=== PATIENT | female | born 1950 | race American Indian/Alaskan Native ===

== ENCOUNTER 2019-05-16 23:38 | Emergency (ER) | payer MEDICARE ==
--- NOTE | 2019-05-17 00:17 | Emergency Department Report ---
<TRUNG CASTILLO - Last Filed: 05/17/19 04:32> ED General Adult HPI - General Chief complaint: Dyspnea/Respdistress Stated complaint: CHOKING Time Seen by Provider: 05/17/19 00:01 Source: patient Mode of arrival: Ambulatory Limitations: No Limitations - History of Present Illness Initial comments: 68-year-old female the past medical history of diabetes that is diet-controlled and hypertension and previous hysterectomy presents to the hospital complaining of difficulty swallowing since getting a pill stuck to her throat. Patient has been having some dental pain so she started some leftover clindamycin tablets. She took the tablets sometime between 8:30 and 9 PM and felt like it got stuck in her upper esophagus. Patient tried swallowing water and bread. She did have a burning sensation to her esophagus but now continues to have difficulty swallowing and pain in her esophagus/neck area. Patient looks uncomfortable with swallowing her saliva and is spitting into a bag at the bedside. - Related Data Previous Rx's Medication Instructions Recorded Last Taken Type Lidocaine Topical 2% 30Ml 15 ml PO Q6H 2 Days #120 ml 05/17/19 Unknown Rx [Xylocaine Topical 2% 30Ml] Sucralfate [Carafate] 10 ml PO TID 14 Days #420 ml 05/17/19 Unknown Rx Allergies Allergy/AdvReac Type Severity Reaction Status Date / Time No Known Allergies Allergy Verified 05/17/19 03:56 ED Review of Systems Comment: All other systems reviewed and negative ED Past Medical Hx - Past Medical History Previous Medical History?: Yes Hx Hypertension: Yes Hx Diabetes: Yes - Surgical History Past Surgical History?: Yes Additional Surgical History: Hysterectomy - Social History Smoking Status: Never Smoker Substance Use Type: None - Medications Home Medications: Home Medications Medication Instructions Recorded Confirmed Last Taken Type Lidocaine Topical 2% 30Ml 15 ml PO Q6H 2 Days #120 ml 05/17/19 Unknown Rx [Xylocaine Topical 2% 30Ml] Sucralfate [Carafate] 10 ml PO TID 14 Days #420 ml 05/17/19 Unknown Rx ED Physical Exam - General Limitations: No Limitations - Other Other exam information: General: Mild distress secondary to throat discomfort Head: Atraumatic Eyes: normal appearance ENT: Moist mucous membranes Neck: Normal appearance, no midline tenderness, no stridor Chest: Clear to auscultation bilaterally CV: Regular rate and rhythm Abdomen: Soft, normal bowel sounds, nontender, nondistended, no rebound or guarding Back: Normal inspection Extremity: Normal inspection, full range of motion Neuro: Alert O x 3, no facial asymmetry, speech clear, no gross motor sensory deficit Psych: Appropriate behavior Skin: No rash ED Course - Reevaluation(s) Reevaluation #1: 05/17/19 00:16 I gave patient a cup of water to evaluate ability to swallow. Patient swallow very little and immediately had pain to neck area and spit up the water. 05/17/19 03:46 pt received Zofran, IV glucagon and still will painful and difficulty swallowing A small amount of viscous lidocaine was provided which pt had difficulty swallowing with very small amount ingested. this was followed by a gulp of water. pt spit the water back up immediately. Differential still includes clindamycin pill induced esophagitis versus obstruction and patient has failed ED medication attempts. GI will be will be reconsulted Reevaluation #2: 05/17/19 06:00 signed out to [facility] siu pt with planned endoscopy at 7am. please follow and dispo as per GI rec - Consultations Consultation #1: 05/17/19 00:22 case d/w Dr Robins, requests trial of glucagon obs for 1-2 hours, and repeat po fluid challenge to see if it improves. 05/17/19 03:[address] Robins, He will contact team to determine when endoscopy can be preformed. 05/17/19 04:11 Dr Robins plans to preform endoscopy around 7am. Pt will need to be signed out to oncoming provider ED Medical Decision Making - Lab Data Result diagrams: 05/17/19 00:49 05/17/19 00:40 - Radiology Data Radiology results: report reviewed AP AND LATERAL SOFT TISSUE NECK INDICATION / CLINICAL INFORMATION: FB (clindamycin pill) in esophagus. COMPARISON: None available. FINDINGS: There are prominent flowing osteophytes throughout the cervical spine consistent with DISH (diffuse idiopathic skeletal hyperostosis). The prevertebral soft tissues are normal. The airway is normal in appearance. The epiglottis is normal in size. I do not identify a radiopaque foreign body. - Medical Decision Making Patient with esophagitis versus esophageal foreign body (pill) obstruction. Despite ED meds patient is unable to swallow liquids in the ED. GI consult with endoscopy planned for the a.m. 05/17/19 06:00 signed out to [facility] siu pt with planned endoscopy at 7am. please follow and dispo as per GI rec - Differential Diagnosis Esophageal foreign body Critical Care Time: No ED Disposition Clinical Impression: Pill esophagitis, Vocal cord disease Disposition: DC-01 TO HOME OR SELFCARE Condition: Stable Additional Instructions: You will need to see an survey research professor. You have swelling of the vocal cords. Prescriptions: Sucralfate [Carafate] 10 ml PO TID 14 Days #420 ml Lidocaine Topical 2% 30Ml [Xylocaine Topical 2% 30Ml] 15 ml PO Q6H 2 Days #120 ml Referrals: FELICIA BARR MD [Staff Physician] - 3-5 Days <URSULA [facility] - Last Filed: 05/17/19 07:43> ED Review of Systems ROS: Stated complaint: CHOKING Other details as noted in HPI ED Course Vital Signs 05/16/19 05/17/19 05/17/19 23:59 00:54 03:54 Temperature 100 F H Pulse Rate 98 H 90 68 Respiratory 20 16 16 Rate Blood Pressure Blood Pressure 160/88 142/76 138/74 [Left] O2 Sat by Pulse 100 98 98 Oximetry 05/17/19 05/17/19 05/17/19 05:54 06:35 06:53 Temperature 99.5 F 99.5 F Pulse Rate 84 103 H 103 H Respiratory 16 19 19 Rate Blood Pressure 175/85 175/85 Blood Pressure [Left] O2 Sat by Pulse 98 98 98 Oximetry ED Medical Decision Making - Lab Data Result diagrams: 05/17/19 00:49 05/17/19 00:40 - Medical Decision Making I discussed case with elementary school registrar Dr. Robins who performed bedside endoscopy. Mild trauma seen at the upper portion of the oropharynx. dx: pill esophagitis. He recommended Carafate and viscous lidocaine. He also detected mild edema at the false vocal cords. He recommended outpatient ENT consultation. Critical care attestation.: If time is entered above; I have spent that time in minutes in the direct care of this critically ill patient, excluding procedure time. ED Disposition Is pt being admited?: No Does the pt Need Aspirin: No
[2019-05-17] MEDS ORDERED: ONDANSETRON 4 MG/2 ML INJ IV ONE (00:19)
[2019-05-17] MEDS ORDERED: GLUCAGON (HUMAN RECOMBINANT) 1 MG/ML INJ IV ONE (00:22)
--- NOTE | 2019-05-17 00:40 | XRay Report ---
AP AND LATERAL SOFT TISSUE NECK INDICATION / CLINICAL INFORMATION: FB (clindamycin pill) in esophagus. COMPARISON: None available. FINDINGS: There are prominent flowing osteophytes throughout the cervical spine consistent with DISH (diffuse i diopathic skeletal hyperostosis). The prevertebral soft tissues are normal. The airway is normal in a ppearance. The epiglottis is normal in size. I do not identify a radiopaque foreign body. Signer Name: Jovanni Molina MD Signed: 05/17/2019 12:36 AM Workstation Name: [id number]
[2019-05-17 01:00] LABS: Basophils % (Auto) 0.6 % (0.0-1.8); Eosinophils % (Auto) 0.6 % (0.0-4.3); Hematocrit 36.8 % (30.3-42.9); Hemoglobin 12.3 gm/dl (10.1-14.3); Lymphocytes # (Auto) 1.3 K/mm3 (1.2-5.4); Lymphocytes % (Auto) 16.9 % (13.4-35.0); Mean Corpuscular HGB Conc 33 % (30-34); Mean Corpuscular Volume 82 fl (79-97); Monocytes # (Auto) 0.6 K/mm3 (0.0-0.8); Monocytes % (Auto) 7.7 % (0.0-7.3); Platelet Count 343 K/mm3 (140-440); Red Blood Count 4.49 M/mm3 (3.65-5.03); Red Cell Distribution Width 13.7 % (13.2-15.2)
[2019-05-17 01:10] LABS: INR 1.17 (0.87-1.13)
[2019-05-17 01:12] LABS: Partial Thromboplastin Time 31.1 Sec. (24.2-36.6)
[2019-05-17 01:19] LABS: Calcium 9.3 mg/dL (8.4-10.2)
[2019-05-17] MEDS ORDERED: MORPHINE 4 MG/1 ML INJ IV ONE (02:56)
[2019-05-17] MEDS ORDERED: LIDOCAINE VISCOUS 2% 15 ML ORAL LIQD PO ONE (03:30)
[2019-05-17] MEDS ORDERED: LIDOCAINE VISCOUS 2% 15 ML ORAL LIQD ONE (03:40)
[2019-05-17] MEDS ORDERED: WATER FOR IRRIG STERILE 250 ML BOTTLE IR ONE (05:29)
[2019-05-17] MEDS ORDERED: SODIUM CHLORIDE 0.9% 1000 ML 1,000 ML IV SCH (05:45)
[2019-05-17] MEDS ORDERED: SODIUM CHLORIDE 0.9% 1000 ML 1,000 ML ONE (05:52)
[2019-05-17] MEDS ORDERED: propofoL 200 MG/20 ML VIAL IV ONE ×2 (07:03)
[2019-05-17] MEDS ORDERED: LIDOCAINE MPF (2%) 20 MG/1 ML VIAL 5 ML ONE (07:05)
--- NOTE | 2019-05-17 07:28 | Gastroenterology Consultation ---
History of Present Illness - Reason for Consult Consult date: 05/17/19 ingested foreign body Requesting physician: TRUNG CASTILLO - History of Present Illness This is a pleasant 60-year-old female who presents with difficulty swallowing. She reports that she took a leftover clindamycin tablet last night and felt like it got stuck in her neck area she was able to swallow some water however she continued to have a burning sensation and now due to the pain is having difficulty swallowing. She localizes the area to her mid neck, worse with swallowing better with not swallowing. She reports the symptoms were acute, stable, never happened before, says she is to have reflux but does not currently have much reflux symptoms Patient is tolerating her secretions and does not appear in distress at the moment Medical history - diabetes, hypertension Surgical historyhysterectomy Allergies no known drug allergies Family history - denies family history of esophageal gastric or colonic malignancy Social history - denies tobacco or alcohol use Home medicationsplease see home med rec below Medications reviewed updated and reconciled Medications and Allergies Allergies Allergy/AdvReac Type Severity Reaction Status Date / Time No Known Allergies Allergy Verified 05/17/19 03:56 Active Meds: Active Medications Sodium Chloride (Nacl 0.9% 1000 Ml) 1,000 mls @ 50 mls/hr IV DIRECT MAXIMILIAN Review of Systems - Review of Systems All systems: negative (10 systems reviewed and negative except as mentioned above in the history of present illness) Exam - Constitutional Vital Signs: Temp Pulse Resp BP Pulse Ox 99.5 F 103 H 19 175/85 98 05/17/19 06:53 05/17/19 06:53 05/17/19 06:53 05/17/19 06:53 05/17/19 06:53 General appearance: no acute distress - EENT ENT: hearing intact - Neck Neck: supple - Respiratory Respiratory effort: normal - Cardiovascular Rhythm: regular Heart Sounds: Present: systolic murmur - Gastrointestinal General gastrointestinal: Present: soft, non-tender - Integumentary Integumentary: Present: warm, dry - Neurologic Neurological: alert and oriented x3 - Psychiatric Psychiatric: appropriate mood/affect - Labs CBC & Chem 7: 05/17/19 00:49 05/17/19 00:40 Lab Results: Laboratory Results - last 24 hr 05/17/19 05/17/19 05/17/19 00:40 00:40 00:49 WBC 7.8 RBC 4.49 Hgb 12.3 Hct 36.8 MCV 82 MCH 27 L MCHC 33 RDW 13.7 Plt Count 343 Lymph % (Auto) 16.9 [place] % (Auto) 7.7 H Eos % (Auto) 0.6 Baso % (Auto) 0.6 Lymph # 1.3 [place] # 0.6 Eos # 0.0 Baso # 0.0 Seg Neutrophils % 74.2 H Seg Neutrophils # 5.8 PT 15.1 H INR 1.17 H APTT 31.1 Sodium 138 Potassium 4.0 Chloride 99.9 Carbon Dioxide 25 Anion Gap 17 BUN 15 Creatinine 1.1 Estimated GFR 60 BUN/Creatinine Ratio 14 Glucose 161 H Calcium 9.3 Assessment and Plan Clinically suspect pill esophagitis as source of patient's symptoms. Will proceed with EGD to determine if the pill is still present and if so to dislodge it. Additionally this will allow evaluation of degree of damage, if any, he esophagus. Discussed with patient proceeding with upper endoscopy will proceed now on an urgent basis after reviewing with her the risk benefits and alternatives - Patient Problems (1) Food impaction of esophagus Current Visit: Yes Status: Acute (2) Odynophagia Current Visit: Yes Status: Acute
--- NOTE | 2019-05-17 07:34 | Operative Report ---
Operative Report Operative Report: DOS: May 17, 2019 SURGEON: Jack Robins MD EGD REPORT PREOPERATIVE DIAGNOSIS and POSTOPERATIVE DIAGNOSIS: Ingested foreign body ESTIMATED BLOOD LOSS: None DESCRIPTION OF PROCEDURE: A high-resolution EGD scope was passed through the oropharynx, esophagus, stomach, and second portion of duodenum. The scope was carefully withdrawn. Retroflexion was performed in the stomach. At the end of the procedure, the scope was cleaned using normal technique. Vital signs monitored continuously throughout. SEDATION: Provided by Anesthesiology Services. COMPLICATIONS: None. FINDINGS: * In the posterior oropharynx the left corniculate tubercle was swollen and edematous but not obstructing the airway * Trauma at the level of the upper esophageal sphincter with erythema and mild ulceration may be consistent with pill esophagitis * 4 cm hiatal hernia * GE junction at 35 cm from the incisors * LA grade D reflux esophagitis in the distal 2 cm of the esophagus * Moderate amount of residual food in the stomach * Gastritis in the gastric fundus with erythema edema and superficial ulceration. Biopsies not obtained due to the concern that risks would outweigh the benefit in this setting * Grossly normal duodenum RECOMMENDATIONS: * Patient without issues with breathing or phonation therefore regarding edematous corniculate tubercle may just follow-up with ENT as an outpatient, though suspect may have just been related to the irritation from the pill esophagitis * Discharge patient with Carafate slurry 1 g 3 times daily for 2 weeks * Charge patient with viscous lidocaine 15 mm swish and swallow 3 times daily as needed for 2 weeks * Patient may follow-up as an outpatient for H. pylori testing and management of her reflux esophagitis and evaluation for possible gastroparesis
[2019-05-17 07:49] VITALS: BP 138/86
--- NOTE | 2019-05-17 10:39 | Anesthesia Consultation ---
Anesthesia Consult and Med Hx Date of service: 05/17/19 - Airway Anesthetic Teeth Evaluation: Poor ROM Head & Neck: Adequate Mental/Hyoid Distance: Adequate Mallampati Class: Class III Intubation Access Assessment: Possibly Difficult - Pulmonary Exam CTA: Yes - Cardiac Exam Cardiac Exam: RRR - Pre-Operative Health Status ASA Pre-Surgery Classification: ASA2, Emergency Proposed Anesthetic Plan: MAC - Pulmonary Hx Smoking: No Hx Respiratory Symptoms: No - Cardiovascular System Hx Hypertension: Yes Hx Heart Attack/AMI: No Hx Percutaneous Transluminal Coronary Angioplasty (PTCA): No - Central Nervous System CVA: No - Gastrointestinal Hx Gastroesophageal Reflux Disease: No - Endocrine Hx Renal Disease: No Hx Liver Disease: No Hx Non-Insulin Dependent Diabetes: Yes Hx Thyroid Disease: No - Other Systems Hx Obesity: No - Additional Comments Anesthesia Medical History Comments: Concern for pill stuck in esophagus vs esophagitits
--- NOTE | 2019-05-17 10:40 | Anesthesia Day of Surgery ---
Anesthesia Day of Surgery - Day of Surgery Patient Examined: Yes Patient H&P Reviewed: Yes Patient is NPO: Yes
--- NOTE | 2019-05-17 10:41 | Post Anesthesia Evaluation ---
- Post Anesthesia Evaluation Patient Participated: Yes Airway Patent: Yes Stable Respiratory Function: Yes Nausea/Vomiting: No Temp > 96.8F: Yes Pain Manageable: Yes Adequeate Hydration: Yes Anesthesia Complications: No
== END 2019-05-17 08:16 | disposition home or self-care (01) ==
LOC: ED 23:38
DX: J38.3 Other diseases of vocal cords (principal); K20.8 Other esophagitis; I10 Essential (primary) hypertension; E11.9 Type 2 diabetes mellitus without complications; Z90.710 Acquired absence of both cervix and uterus; Z79.899 Other long term (current) drug therapy
CPT/HCPCS: 36415; 70360; 80048; 85025; 85610; 85730; 96374; 96375; 99284; J1610; J2270; J2405; J2704; J7030

== ENCOUNTER 2021-04-23 15:13 | Emergency (ER) | payer MEDICARE ==
--- NOTE | 2021-04-23 19:23 | Cat Scan Report ---
CT head/brain wo con INDICATION / CLINICAL INFORMATION: 70 years Female; fall. TECHNIQUE: Routine CT head without contrast. All CT scans at this location are performed using CT dos e reduction for ALARA by means of automated exposure control. COMPARISON: None. FINDINGS: BRAIN / INTRACRANIAL CONTENTS: The motion degrades the image quality. However, there is no clear CT e vidence of acute intracranial hemorrhage or significant mass effect. There is mild cerebral atrophy. The ventricular system is correspondingly appropriate in size and configuration. There appear to be m ild periventricular white matter changes most consistent with age-appropriate microvascular angiopath y. ORBITS: No significant abnormality of visualized orbits. SINUSES / MASTOIDS: No significant abnormality in the visualized paranasal sinuses or mastoid air denzel ls. CRANIOCERVICAL JUNCTION: No significant abnormality. ADDITIONAL FINDINGS: There is incidental hyperostosis frontalis interna. 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 IMPRESSION: 1. There is mild microvascular angiopathy and cerebral atrophy as described without clear CT evidence of acute intracranial hemorrhage. Signer Name: Jamar Mcclendon MD Signed: 04/23/2021 7:19 PM Workstation Name: [id number]
--- NOTE | 2021-04-23 19:36 | Cat Scan Report ---
CT cervical spine wo con INDICATION / CLINICAL INFORMATION: 70 years Female; fall. TECHNIQUE: Axial CT images of the cervical spine were obtained. Sagittal and coronal reformatted images were pr oduced. All CT scans at this location are performed using CT dose reduction for ALARA by means of aut omated exposure control. COMPARISON: None available. FINDINGS: POST-SURGICAL CHANGES: None. ALIGNMENT: There is mild curvature the cervical spine, convex toward the right. There is no significa nt spondylolisthesis at. VERTEBRAE: There is notable anterior osteophytic formation involving visualized cervicothoracic spine . 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 There is no clear CT evidence of acute fracture of the cervical spine. INTRAVERTEBRAL DISCS: The left facet and uncovertebral joint hypertrophy at C3-4 results in moderate to marked left foraminal narrowing. The spondylosis also mildly encroaches on the left lateral recess . There is moderate to marked left foraminal narrowing at C4-5. The ossification at C5-6 effaces the subarachnoid space, greater on the right with encroachment on th e right lateral cord and bilateral recess. There is moderate to marked left foraminal narrowing. Magaly lar ossification is also noted at C6-7 with effacement of the right lateral recess. There is more focal right-sided ossification at C7-T1 with slight encroachment on the right ventral c ord. Is mild right foraminal narrowing. There is more prominent ossification at T1-2 which encroaches on the ventral cord at. There appears be moderate left foraminal narrowing. There is even more prominent ossification at T1-2 which is much greater on the right. The findings re sult in bony of spinal stenosis with deformity of the cord and notable effacement of the right latera l recess. There is also notable right neural foraminal narrowing. PARASPINAL SOFT TISSUES: No prevertebral soft tissue fluid collections are identified. There is heter ogeneous appearance of the thyroid gland with small focus of calcification on the right which is nons pecific. ADDITIONAL FINDINGS: None. IMPRESSION: 1. There is no clear CT evidence of acute fracture involving the cervical spine. 2. 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 3. There is also notable extensive anterior osteophytic formation involving cervicothoracic spine as described. Signer Name: Jamar Mcclendon MD Signed: 04/23/2021 7:32 PM Workstation Name: [id number]
--- NOTE | 2021-04-23 20:39 | Emergency Department Report ---
ED Fall HPI - General Chief Complaint: Fall Stated Complaint: FALL HIT HEAD Time Seen by Provider: 04/23/21 18:22 Source: patient Mode of arrival: Ambulatory - History of Present Illness Initial Comments: pt fell in parking lot, hit head, -loc, reports body aches Complaint: fall -: This afternoon Fall From: standing When Fall Occurred: unsure Fall Witnessed: no Place Fall Occurred: home Prolonged Down Time?: no Symptoms Prior to Fall: none Location: head, neck Severity scale (0 -10): 2 Quality: dull Associated Symptoms: denies - Related Data Previous Rx's Medication Instructions Recorded Last Taken Type Lidocaine Topical 2% 30Ml 15 ml PO Q6H 2 Days #120 ml 05/17/19 Unknown Rx [Xylocaine Topical 2% 30Ml] Sucralfate [Carafate] 10 ml PO TID 14 Days #420 ml 05/17/19 Unknown Rx Allergies Allergy/AdvReac Type Severity Reaction Status Date / Time Penicillins Allergy Unknown Verified 04/23/21 18:01 ED Review of Systems ROS: Stated complaint: FALL HIT HEAD Other details as noted in HPI Constitutional: denies: chills, fever Eyes: denies: eye pain, eye discharge, vision change ENT: denies: ear pain, throat pain Respiratory: denies: cough, shortness of breath, wheezing Cardiovascular: denies: chest pain, palpitations Endocrine: no symptoms reported Gastrointestinal: denies: abdominal pain, nausea, diarrhea Genitourinary: denies: urgency, dysuria, discharge Musculoskeletal: denies: back pain, joint swelling, arthralgia Skin: denies: rash, lesions Neurological: denies: headache, weakness, paresthesias Psychiatric: denies: anxiety, depression Hematological/Lymphatic: denies: easy bleeding, easy bruising ED Past Medical Hx - Past Medical History Previous Medical History?: Yes Hx Hypertension: Yes Hx Heart Attack/AMI: No Hx Diabetes: Yes Hx Liver Disease: No Hx Renal Disease: No - Surgical History Past Surgical History?: Yes Additional Surgical History: Hysterectomy - Social History Smoking Status: Never Smoker Substance Use Type: None - Medications Home Medications: Home Medications Medication Instructions Recorded Confirmed Last Taken Type Lidocaine Topical 2% 30Ml 15 ml PO Q6H 2 Days #120 ml 05/17/19 Unknown Rx [Xylocaine Topical 2% 30Ml] Sucralfate [Carafate] 10 ml PO TID 14 Days #420 ml 05/17/19 Unknown Rx ED Physical Exam - General Limitations: Physical Limitation General appearance: alert, in no apparent distress - Head Head exam: Present: atraumatic, normocephalic - Eye Eye exam: Present: normal appearance - ENT ENT exam: Present: mucous membranes moist - Neck Neck exam: Present: normal inspection - Respiratory Respiratory exam: Present: normal lung sounds bilaterally. Absent: respiratory distress - Cardiovascular Cardiovascular Exam: Present: regular rate, normal rhythm. Absent: systolic murmur, diastolic murmur, rubs, gallop - GI/Abdominal GI/Abdominal exam: Present: soft, normal bowel sounds - Extremities Exam Extremities exam: Present: normal inspection - Back Exam Back exam: Present: normal inspection - Neurological Exam Neurological exam: Present: alert, oriented X3 - Psychiatric Psychiatric exam: Present: normal affect, normal mood - Skin Skin exam: Present: warm, dry, intact, normal color. Absent: rash ED Course Vital Signs 04/23/21 17:58 Temperature 99.3 F Pulse Rate 84 Respiratory 16 Rate Blood Pressure 179/83 O2 Sat by Pulse 98 Oximetry Critical care attestation.: If time is entered above; I have spent that time in minutes in the direct care of this critically ill patient, excluding procedure time. ED Disposition Clinical Impression: Fall, Head injury Disposition: 01 HOME / SELF CARE / HOMELESS Is pt being admited?: No Does the pt Need Aspirin: No Condition: Stable Instructions: How to Use Cold Therapy, [id number] Referrals: HENRY WHITE MD [Primary Care Provider] - 3-5 Days
[2021-04-23 21:39] VITALS: BP 168/82
== END 2021-04-23 21:42 | disposition home or self-care (01) ==
LOC: ED 15:13
DX: S09.8XXA Other specified injuries of head, initial encounter (principal); W19.XXXA Unspecified fall, initial encounter; Y93.89 Activity, other specified; Y92.89 Other specified places as the place of occurrence of the external cause; Y99.8 Other external cause status
CPT/HCPCS: 70450; 72125; 99283

== ENCOUNTER 2021-09-12 00:12 | Emergency (ER) | payer MEDICARE | END 2021-09-12 00:30 | disposition left against medical advice (07) | LOC: ED 00:12 | DX: S00.462A Insect bite (nonvenomous) of left ear, initial encounter (principal); Z53.21 Procedure and treatment not carried out due to patient leaving prior to being seen by health care provider; W57.XXXA Bitten or stung by nonvenomous insect and other nonvenomous arthropods, initial encounter; Y93.89 Activity, other specified; Y92.89 Other specified places as the place of occurrence of the external cause; Y99.8 Other external cause status ==